=== PATIENT | female | born 1985 | race Caucasian/White ===

== ENCOUNTER 2017-01-03 11:24 | Emergency (ER) | payer OTHER ==
[~2017-01-03] VITALS: Ht 157.5 cm; Wt 46.0 kg
[2017-01-03 11:47] VITALS: Ht 157.5 cm; Wt 46.0 kg
[2017-01-03] MEDS ORDERED: DIPHENHYDRAMINE 50 MG INJ IV STA (13:41)
[2017-01-03] MEDS ORDERED: METOCLOPRAMIDE 10 MG INJ IV STA (13:41)
[2017-01-03] MEDS ORDERED: SOD CHLORIDE 0.9% 1,000 ML IV STA (13:41)
[2017-01-03] MEDS ORDERED: KETOROLAC 30 MG INJ IV STA (13:41)
[2017-01-03 14:10] LABS: URINE BLOOD (Dip) POC Negative (NEGATIVE)
[2017-01-03] MEDS ORDERED: FIORICET PO (14:58)
--- NOTE | 2017-01-03 15:09 | ERD ---
ER Documentation Chief Complaint Date/Time DATE: 01/03/17 TIME: 15:05 Chief Complaint puentes started x 6 days ago; cold like syptoms x 6 days HPI 31-year-old female complaining of headache 6 days. Patient states she has had nasal congestion and she has headache in the occipital region. Patient states she has had this before and was been told that she has tension headaches. Denies vomiting. Denies fever. Took Tylenol yesterday with mild alleviation. Denies visual changes. Denies dizziness. Denies chest pains or shortness of breath. States his headache is not the worst headache of her life. Medical history: Anemia and headaches NKDA Surgical history: Social history: Denies ROS All systems reviewed and are negative except as per history of present illness. Medications Home Meds Active Scripts Acetamin/Butalbital/Caffeine* (Fioricet*) [id number] Tab, 1 TAB PO Q6H Y for PAIN, #30 TAB Prov:ZENAIDA HENSLEY PA-C 01/03/17 PMhx/Soc History of Surgery: Yes () Anesthesia Reaction: No Hx Neurological Disorder: No Hx Respiratory Disorders: No Hx Cardiac Disorders: No Hx Psychiatric Problems: No Hx Miscellaneous Medical Probl: Yes (ANEMIA) Hx Alcohol Use: No Hx Substance Use: No Hx Tobacco Use: No Smoking Status: Never smoker Physical Exam Vitals Vital Signs Date Time Temp Pulse Resp B/P Pulse Ox O2 Delivery O2 Flow Rate FiO2 01/03/17 11:47 98.4 81 18 104/58 97 Physical Exam GENERAL: The patient is well-appearing, well-nourished, in no acute distress HEENT: Atraumatic. Conjunctivae are pink. Pupils equal, round, and reactive to light. There is no scleral icterus. Tympanic membranes clear bilaterally. Oropharynx clear. No nystagmus or photophobia. NECK: C-spine is soft and supple. There is no meningismus. There is no cervical lymphadenopathy. No JVD. No bruits. No goiter. CHEST: Clear to auscultation bilaterally. There are no rales, wheezes or rhonchi. HEART: Regular rate and rhythm. No murmurs, clicks, rubs or gallops. No S3 or S4. NEUROLOGIC: Alert and oriented. Cranial nerves II through XII intact. Motor strength in all 4 extremities with 5 out of 5 strength. Sensation grossly intact. Normal speech and gait. Babinski negative. DTR 2+ throughout. SKIN: There is no apparent rash or petechiae. The skin is warm and dry. Results 24 hrs Laboratory Tests Test 01/03/17 14:16 Bedside Urine pH (LAB) 6.5 Bedside Urine Protein (LAB) Negative Bedside Urine Glucose (UA) Negative Bedside Urine Ketones (LAB) 1+ Bedside Urine Blood Negative Bedside Urine Nitrite (LAB) Negative Bedside Urine Leukocyte Esterase (L 1+ Current Medications Medications (Trade) Dose Ordered Sig/Isidra Route PRN Reason Start Time Stop Time Status Last Admin Dose Admin Sodium Chloride (NS) 1,000 ml @ 1,000 mls/hr Q1H STAT IV 01/03/17 13:41 01/03/17 14:40 DC 01/03/17 14:26 Metoclopramide HCl (Reglan) 10 mg ONCE STAT IV 01/03/17 13:41 01/03/17 13:43 DC 01/03/17 14:27 Ketorolac Tromethamine (Toradol) 30 mg ONCE STAT IV 01/03/17 13:41 01/03/17 13:43 DC 01/03/17 14:26 Diphenhydramine HCl (Benadryl) 25 mg ONCE STAT IV 01/03/17 13:41 01/03/17 13:43 DC 01/03/17 14:27 Procedures/MDM ER course: Patient was given IV fluids, Toradol, Benadryl and Reglan while in the ED. Upon reevaluation patient's symptoms had improved. MDM: 31-year-old female complaining of headache 6 days. I have low suspicion for intracranial hemorrhage or mass-effect. I have low suspicion for neurodeficit. Patient's symptoms improved with medication in the ED and states this is not the worst headache of her life. I do not feel that imaging was indicated at today's visit. Patient has not had vomiting. No visual changes. Patient will be discharged with medication and told to return if symptoms change or worsen. Patient is told to follow-up with primary care within 1-2 days for close evaluation and given strict ER precautions. Departure Diagnosis: Primary Impression: Headache Condition: Stable Patient Instructions: Self-Care for Headaches Referrals: DOMINIQUE CAMPA MD (PCP) Additional Instructions: FOLLOW UP WITH YOUR PRIMARY CARE PHYSICIAN TOMORROW.Return to this facility if you are not improving as expected. ZENAIDA HENSLEY PA-C Jan 03, 2017 15:09
[2017-01-03] MEDS ORDERED: NITR-58 PO (15:25)
[2017-01-03 15:29] VITALS: BP 108/64; PULSE 69; RESP 16; TEMP 98.1
== END 2017-01-03 15:30 | disposition home or self-care (01) ==
LOC: FTE 11:24
DX: R51 Headache (principal)
CPT/HCPCS: 81003; 96374; 96375; 99284; J1200; J1885; J2765; J7030

== ENCOUNTER 2018-08-02 00:47 | Emergency (ER) | payer OTHER ==
[~2018-08-02] VITALS: Ht 157.5 cm; Wt 48.4 kg
[~2018-08-02 00:47] MED LIST: FIORICET PO; NITR-58 PO
[2018-08-02 00:57] VITALS: BP 145/66; PULSE 100; RESP 20; Ht 157.5 cm; Wt 48.4 kg
[2018-08-02] MEDS ORDERED: SOD CHLORIDE 0.9% 1,000 ML IV STA (04:34)
[2018-08-02] MEDS ORDERED: ONDANSETRON 4 MG INJ IV STA (04:34)
[2018-08-02] MEDS ORDERED: morphine 4 MG/ML VIAL IV STA (04:34)
[2018-08-02] MEDS ORDERED: KETOROLAC 30 MG INJ IV ONE (06:01)
[2018-08-02] MEDS ORDERED: DOCU-144 PO (07:00)
[2018-08-02] MEDS ORDERED: POLY17PO6 PO (07:00)
[2018-08-02] MEDS ORDERED: CEPH-443 PO (07:00)
[2018-08-02] MEDS ORDERED: POLYETHYLENE GLYCOL 17 GM PACKET PO ONE (07:00)
--- NOTE | 2018-08-02 22:56 | ERD ---
ER Documentation Chief Complaint Chief Complaint on and off abd pain x 2 days, worse tonite HPI 32 year old F with no significant medical hx who presents to the ED with intermittent abdominal pain x 2 days, worse tonight. Pain is sharp, stabbing and located diffusely across the entire abdomen. Any movement aggravates the pain. No known precipitating factors. Pt states she was diagnosed with colitis while at [facility] over 2 months ago. Believes today's sx are similar, but much worse. She denies any fevers, nausea, vomiting, urinary sx, constipation, chest pain and shortness of breath. ROS All systems reviewed and are negative except as per history of present illness. Medications Home Meds Active Scripts Polyethylene Glycol* (Miralax*) 17 Gm Powd.pack, 17 GM PO DAILY, #7 Prov:DANIELLE POTTERC 08/02/18 Docusate Sodium* (Colace*) 100 Mg Capsule, 100 MG PO TID, #30 CAP Prov:DANIELLE POTTERC 08/02/18 Cephalexin* (Keflex*) 500 Mg Capsule, 500 MG PO BID for 7 Days, #14 CAP Prov:DANIELLE POTTERC 08/02/18 Nitrofurantoin Monohyd Macrocr* (Macrobid*) 100 Mg Capsr, 100 MG PO BID for 14 Days, CAP Prov:ZENAIDA HENSLEY PA-C 01/03/17 Acetamin/Butalbital/Caffeine* (Fioricet*) [id number] Tab, 1 TAB PO Q6H PRN for PAIN, #30 TAB Prov:ZENAIDA HENSLEY PA-C 01/03/17 Allergies Allergies: Coded Allergies: No Known Allergy (Unverified , 08/02/18) PMhx/Soc History of Surgery: Yes () Anesthesia Reaction: No Hx Neurological Disorder: No Hx Respiratory Disorders: No Hx Cardiac Disorders: No Hx Psychiatric Problems: No Hx Miscellaneous Medical Probl: Yes (ANEMIA) Hx Alcohol Use: No Hx Substance Use: No Hx Tobacco Use: No Physical Exam Vitals Vital Signs Date Temp Pulse Resp B/P (MAP) Pulse Ox O2 O2 Flow FiO2 Time Delivery Rate 08/02/18 97.4 100 20 145/66 100 00:57 (92) Physical Exam Const: + moderate distress secondary to pain Head: Atraumatic Eyes: Normal Conjunctiva ENT: Normal External Ears, Nose and Mouth. Neck: Full range of motion. No meningismus. Resp: Clear to auscultation bilaterally Cardio: Regular rate and rhythm, no murmurs Abd: + pt moaning in pain with the slightest touch to the abdomen. Diffusely TTP. Soft, non distended. Normal bowel sounds Skin: No petechiae or rashes Back: No midline or flank tenderness Ext: No cyanosis, or edema Neur: Awake and alert Psych: Normal Mood and Affect Result Diagram: 08/02/18 0501 08/02/18 0501 Results 24 hrs Laboratory Tests Test 08/02/18 05:01 White Blood Count 7.3 10^3/ul Red Blood Count 5.40 10^6/ul Hemoglobin 12.3 g/dl Hematocrit 40.9 % Mean Corpuscular Volume 75.7 fl Mean Corpuscular Hemoglobin 22.8 pg Mean Corpuscular Hemoglobin Concent 30.1 g/dl Red Cell Distribution Width 21.5 % Platelet Count 482 10^3/UL Mean Platelet Volume 9.3 fl Immature Granulocytes % 0.300 % Neutrophils % 69.3 % Lymphocytes % 23.9 % Monocytes % 3.6 % Eosinophils % 2.2 % Basophils % 0.7 % Nucleated Red Blood Cells % 0.0 /100WBC Immature Granulocytes # 0.020 10^3/ul Neutrophils # 5.0 10^3/ul Lymphocytes # 1.7 10^3/ul Monocytes # 0.3 10^3/ul Eosinophils # 0.2 10^3/ul Basophils # 0.1 10^3/ul Nucleated Red Blood Cells # 0.0 10^3/ul Urine Color YELLOW Urine Clarity SLIGHTLY CLOUDY Urine pH 7.0 Urine Specific Hanna 1.013 Urine Ketones NEGATIVE mg/dL Urine Nitrite NEGATIVE mg/dL Urine Bilirubin NEGATIVE mg/dL Urine Urobilinogen NEGATIVE mg/dL Urine Leukocyte Esterase 2+ Tee/ul Urine Microscopic RBC 6 /HPF Urine Microscopic WBC 54 /HPF Urine Squamous Epithelial Cells FEW /HPF Urine Hemoglobin 1+ mg/dL Urine Glucose NEGATIVE mg/dL Urine Total Protein NEGATIVE mg/dl Sodium Level 142 mmol/L Potassium Level 3.8 mmol/L Chloride Level 105 mmol/L Carbon Dioxide Level 28 mmol/L Anion Gap 9 Blood Urea Nitrogen 10 mg/dl Creatinine 0.63 mg/dl Est Glomerular Filtrat Rate mL/min > 60 mL/min Glucose Level 95 mg/dl Calcium Level 9.6 mg/dl Total Bilirubin 0.3 mg/dl Direct Bilirubin 0.00 mg/dl Indirect Bilirubin 0.3 mg/dl Aspartate Amino Transf (AST/SGOT) 24 IU/L Alanine Aminotransferase (ALT/SGPT) 13 IU/L Alkaline Phosphatase 65 IU/L Total Protein 8.4 g/dl Albumin 4.4 g/dl Globulin 4.00 g/dl Albumin/Globulin Ratio 1.10 Lipase 73 U/L Serum HCG, Qualitative NEGATIVE Current Medications Medications Dose Sig/Isidra Start Time Status Last (Trade) Ordered Route PRN Stop Time Admin Dose Reason Admin Sodium 1,000 ml @ Q1H STAT 08/02/18 DC 08/02/18 Chloride 1,000 mls/hr IV 04:34 05:06 08/02/18 05:33 Morphine 4 mg ONCE STAT 08/02/18 DC 08/02/18 Sulfate IV 04:34 05:06 (morphine) 08/02/18 04:37 Ondansetron 4 mg ONCE STAT 08/02/18 DC 08/02/18 HCl (Zofran IV 04:34 05:05 Inj) 08/02/18 04:37 Ketorolac 30 mg ONCE ONCE 08/02/18 DC 08/02/18 Tromethamine IV 06:01 06:40 (Toradol) 08/02/18 06:02 17 gm ONCE ONCE 08/02/18 DC Polyethylene PO 07:00 Glycol 08/02/18 07:01 (Miralax) Procedures/MDM LABS CBC: no e/o of systemic infection or severe anemia CMP: no e/o severe acidosis, alkalosis, renal failure, diabetic ketoacidosis, liver disease Lipase: no e/o pancreatitis Urine: 2+ leuks, hematuria, pyuria DIAGNOSTIC IMAGING: PROCEDURE: CT Abdomen and Pelvis without contrast. CLINICAL INDICATION: Abdominal pain. TECHNIQUE: CT scan of the abdomen and pelvis without contrast was performed on a multidetector CT scanner. The patient was scanned without intravenous contrast. Coronal and sagittal reformatted images were obtained from the axial source images. Images were reviewed on a high-resolution PACS workstation. DICOM images are available. One or more of the following dose reduction techniques were used: -Automated exposure control. -Adjustment of the mA and/or kV according to patient size. -Use of iterative reconstruction technique. The total exam CTDI equals 5.64 mGy and the total exam DLP equals 295.27 mGy-cm. COMPARISON: CT 06/08/2018 FINDINGS: Please note that the sensitivity for detection of focal lesions or vascular disease is markedly reduced without intravenous contrast. The visualized lung bases are clear. CT abdomen: Liver: Unremarkable. Biliary system: No intra or extrahepatic biliary ductal dilatation. Gallbladder: Unremarkable. Pancreas: Unremarkable. Spleen: Unremarkable. Adrenal glands: Unremarkable. Right kidney: Unremarkable. No renal or ureteric stones. No hydronephrosis or hydroureter. Left kidney: Unremarkable. No renal or ureteric stones. No hydronephrosis or hydroureter. Bowel loops: Large amount of stool throughout the colon. There is no bowel obstruction. Appendix is normal. Lymph Nodes: There is no mesenteric lymphadenopathy. There is no retroperitoneal lymphadenopathy. CT pelvis: Rectum: Unremarkable. Urinary bladder: Unremarkable. Uterus appears unchanged. No adnexal masses. Lymph nodes: There is no iliac lymphadenopathy. There is no inguinal lymphadenopathy. Bone: No aggressive osseous lesions. IMPRESSION: 1. Large amount of stool throughout the colon. No bowel obstruction. 2. Otherwise no acute abnormality of the abdomen or pelvis. ED COURSE: The patient was given IVFs, Zofran, Morphine, Torodol The medication was well tolerated and the patient had market improvement in symptoms. The patient remained stable throughout ED course. MEDICAL DECISION MAKIN32 year old F presents with abdominal pain of uncertain etiology. Differential diagnosis includes appendicitis, diverticulitis, cholecystitis, nephrolithais and other intra-abdominal medical and surgical concerns. I have reviewed the patients lab studies and imaging as well as multiple examinations of the abdomen which were unremarkable. CT abd pelvis as above reveals constipation, likely the source of her pain. No evidence of perforation or obstruction. Will provide rx for Miralaax and Colace. UA positive for UTI, pt is stable and can be treated with outpt abx. Given rx Keflex. Follow up with PCP in 2 days, return here for any new worsening sx. PRESCRIPTIONS: Miralaax, Colace SPECIALIST FOLLOW UP RECOMMENDED: None Patient's blood pressure was elevated (>120/80) but appears stable without evidence of hypertension emergency or urgency. The patient was counseled about the risks of hypertension and urged to pursue outpatient monitoring and therapy within a week with their primary care physician Departure Diagnosis: Primary Impression: Abdominal pain Abdominal location: generalized Qualified Codes: R10.84 - Generalized abdominal pain Additional Impressions: UTI (urinary tract infection) Urinary tract infection type: acute cystitis Hematuria presence: with hematuria Qualified Codes: N30.01 - Acute cystitis with hematuria Constipation Constipation type: unspecified constipation type Qualified Codes: K59.00 - Constipation, unspecified Condition: Stable Patient Instructions: Understanding Urinary Tract Infections (UTIs), Constipation (Adult) Referrals: COMMUNITY CLINICS YOU HAVE RECEIVED A MEDICAL SCREENING EXAM AND THE RESULTS INDICATE THAT YOU DO NOT HAVE A CONDITION THAT REQUIRES URGENT TREATMENT IN THE EMERGENCY DEPARTMENT. FURTHER EVALUATION AND TREATMENT OF YOUR CONDITION CAN WAIT UNTIL YOU ARE SEEN IN YOUR DOCTORS OFFICE WITHIN THE NEXT 1-2 DAYS. IT IS YOUR RESPONSIBILITY TO MAKE AN APPOINTMENT FOR FOLOW-UP CARE. IF YOU HAVE A PRIMARY DOCTOR --you should call your primary doctor and schedule an appointment IF YOU DO NOT HAVE A PRIMARY DOCTOR YOU CAN CALL OUR PHYSICIAN REFERRAL HOTLINE AT IF YOU CAN NOT AFFORD TO SEE A PHYSICIAN YOU CAN CHOSE FROM THE FOLLOWING [facility] [address] [facility] [facility] [address] [facility] [address] [facility] [facility] [address] [facility] [facility] [address] [facility]. [facility]. [address] [facility]. [facility] YOU HAVE RECEIVED A MEDICAL SCREENING EXAM AND THE RESULTS INDICATE THAT YOU DO NOT HAVE A CONDITION THAT REQUIRES URGENT TREATMENT IN THE EMERGENCY DEPARTMENT. FURTHER EVALUATION AND TREATMENT OF YOUR CONDITION CAN WAIT UNTIL YOU ARE SEEN IN YOUR DOCTORS OFFICE WITHIN THE NEXT 1-2 DAYS. IT IS YOUR RESPONSIBILITY TO MAKE AN APPOINTMENT FOR FOLOW-UP CARE. IF YOU HAVE A PRIMARY DOCTOR --you should call your primary doctor and schedule and appointment IF YOU DO NOT HAVE A PRIMARY DOCTOR YOU CAN CALL OUR PHYSICIAN REFERRAL HOTLINE AT . IF YOU CAN NOT AFFORD TO SEE A PHYSICIAN YOU CAN CHOSE FROM THE FOLLOWING [facility] INSTITUTIONS: [facility] [address] [place] [address] [facility] [address] [place] [address] [facility] [address] [place] [address] [facility]CIALT[facility] Additional Instructions: Call your primary care doctor TOMORROW for an appointment during the next 2-4 days and bring all the information and medications prescribed. If the symptoms get worse and your provider is unavailable, return to the Emergency Department immediately. DANIELLE POTTER PA-C Aug 02, 2018 22:55
== END 2018-08-02 07:11 | disposition home or self-care (01) ==
LOC: FTE 00:47
DX: N30.01 Acute cystitis with hematuria (principal); K59.00 Constipation, unspecified
CPT/HCPCS: 36415; 74176; 80053; 81001; 83690; 84703; 85025; 96361; 96374; 96375; J1885; J2270; J2405; J7030; Z7502; Z7610

== ENCOUNTER 2018-10-03 06:48 | Day surgery (SDC) | payer OTHER ==
[~2018-10-03] VITALS: Ht 157.5 cm; Wt 47.1 kg
[~2018-10-03 06:48] MED LIST changes: +CEPH-443 PO; +DOCU-144 PO; +POLY17PO6 PO
[2018-10-03] MEDS ORDERED: BIRTH CONTROL PO (07:40)
[2018-10-03] MEDS ORDERED: IRON PO (07:40)
[2018-10-03 07:45] VITALS: Ht 157.5 cm; Wt 47.1 kg
[2018-10-03 08:25] VITALS: BP 105/58; PULSE 69; RESP 16
[2018-10-03] MEDS ORDERED: FENTAnyl 50 MCG/ML VIAL ONE (10:31)
[2018-10-03] MEDS ORDERED: MIDAZOLAM 1 MG/ML 2 ML INJ ONE ×4 (10:32)
[2018-10-03 10:37] VITALS: BP 100/55; RESP 16
== END 2018-10-03 14:18 | disposition home or self-care (01) ==
LOC: GIL 06:48
PROVIDERS: ATTEND Internal Medicine Gastroenterology
DX: K29.50 Unspecified chronic gastritis without bleeding (principal); K64.8 Other hemorrhoids; K44.9 Diaphragmatic hernia without obstruction or gangrene; K21.9 Gastro-esophageal reflux disease without esophagitis
CPT/HCPCS: 43239; 45380; 88305; 88312; 88313; J2250; J3010; Z7610